=== PATIENT | female | born 1995 | race Two or more races ===

== ENCOUNTER 2022-06-25 13:45 | Inpatient (IN) | payer OTHER ==
[~2022-06-25] VITALS: Ht 162.6 cm; Wt 3.2 kg
[2022-07-04] MEDS ORDERED: PRENATAL TABLE1 EAC1 PO (06:27)
[2022-07-04] MEDS ORDERED: KEPPRA500 MG (06:27)
[2022-07-04] MEDS ORDERED: FOLIC ACID0.8 M1 PO (06:27)
== END 2022-07-07 12:58 | disposition home or self-care (01) | DRG 788 ==
LOC: OB/GYN 07-04 05:20 → LDR 07-04 05:20 → OB/GYN 07-04 14:16
PROVIDERS: ADMIT Specialist; ATTEND Specialist
PROC: 4A1HXCZ Monitoring of Products of Conception, Cardiac Rate, External Approach (ICD-10-PCS; 2022-07-04)
PROC: 10D00Z1 Extraction of Products of Conception, Low, Open Approach (ICD-10-PCS; principal; 2022-07-04 17:45)
DX: O33.8 Maternal care for disproportion of other origin (principal); Z3A.39 39 weeks gestation of pregnancy; Z37.0 Single live birth; Z20.822 Contact with and (suspected) exposure to COVID-19

== ENCOUNTER 2023-09-10 09:21 | Outpatient (CLI) | payer OTHER ==
[~2023-09-10 09:21] MED LIST: FOLIC ACID0.8 M1 PO; KEPPRA500 MG; PRENATAL TABLE1 EAC1 PO
== END 2023-09-10 09:24 | disposition home or self-care (01) ==
LOC: PRENATAL 09:21
PROVIDERS: ATTEND Obstetrics & Gynecology Maternal & Fetal Medicine
DX: O35.3XX0 Maternal care for (suspected) damage to fetus from viral disease in mother, not applicable or unspecified (principal); O44.00 Complete placenta previa NOS or without hemorrhage, unspecified trimester; O34.219 Maternal care for unspecified type scar from previous cesarean delivery; Z3A.20 20 weeks gestation of pregnancy

== ENCOUNTER 2023-09-21 17:06 | Emergency (ER) | payer OTHER ==
[~2023-09-21] VITALS: Ht 162.6 cm; Wt 99.8 kg
[2023-09-21] MEDS ORDERED: 0.9 % SODIUM CHLORIDE 1,000 ML IV STA (18:07)
[2023-09-21 18:53] LABS: HEMATOCRIT 37.5 % (36.0-45.00); HEMOGLOBIN 12.6 g/dL (12.0-15.00); MEAN CELL VOLUME 83.5 fL (80.00-100.00); MEAN CORPUSCULAR HEMOGLOBIN 28.1 pg (27.00-32.0); MEAN CORPUSCULAR HGB CONC 33.6 g/dl (32.0-36.0); PLATELET COUNT 223 K/uL (150-450); RED CELL DISTRIBUTION WIDTH 14.4 % (11.5-14.5)
[2023-09-21 19:13] LABS: CREATININE SERUM 0.57 mg/dL (0.55-1.02); GFR 128.21; POTASSIUM 3.56 mEq/L (3.5-5.1)
[2023-09-21 22:15] LABS: PH,URINE 5.5 (5.0-8.0); URINE APPEARANCE Clear; URINE BILIRRUBIN Negative (NEGATIVE); URINE BLOOD Negative; URINE COLOR Dark Yellow; URINE GLUCOSE Negative (NEGATIVE); URINE LEUKOCYTE Negative; URINE NITRATE Negative; URINE PROTEIN Trace (NEGATIVE)
[2023-09-21 22:18] LABS: URINE BACTERIA 1320.4 uL (0.0-1933); URINE EPITHELIAL CELLS 47.3 uL (0.0-38.8); URINE RBC 9.4 uL (0.0-20.8); URINE WBC 9.1 uL (0.0-23.2)
[2023-09-21 22:26] LABS: URINE MUCUS MODERATE
== END 2023-09-21 22:42 | disposition home or self-care (01) ==
LOC: ER 17:06
PROVIDERS: Emergency Medicine
DX: O26.892 Other specified pregnancy related conditions, second trimester (principal); Z3A.21 21 weeks gestation of pregnancy

== ENCOUNTER → 2023-12-17 08:38 | Outpatient (CLI) | payer OTHER | END | disposition home or self-care (01) | LOC: PRENATAL 08:38 | PROVIDERS: ATTEND Obstetrics & Gynecology Maternal & Fetal Medicine | DX: O24.419 Gestational diabetes mellitus in pregnancy, unspecified control (principal); O26.843 Uterine size-date discrepancy, third trimester; O36.8130 Decreased fetal movements, third trimester, not applicable or unspecified; O34.219 Maternal care for unspecified type scar from previous cesarean delivery; Z3A.34 34 weeks gestation of pregnancy ==

== ENCOUNTER 2024-01-08 10:19 | Inpatient (IN) | payer OTHER ==
[~2024-01-08] VITALS: Ht 162.6 cm; Wt 3.6 kg
[2024-01-08 11:07] LABS: PH,URINE 6.5 (5.0-8.0); URINE APPEARANCE Clear; URINE BILIRRUBIN Negative (NEGATIVE); URINE BLOOD Negative; URINE COLOR Yellow; URINE GLUCOSE Negative (NEGATIVE); URINE KETONE 15 (NEGATIVE); URINE LEUKOCYTE Small; URINE NITRATE Negative; URINE PROTEIN Negative (NEGATIVE); URINE UROBILINOGEN 0.2 E.U./dl
[2024-01-08] MEDS ORDERED: PRENATABS RX T1 EACH PO (11:11)
[2024-01-08] MEDS ORDERED: VITAMIN K100 MCG PO (11:11)
[2024-01-08 11:12] LABS: URINE BACTERIA 1980.6 uL (0.0-1933); URINE EPITHELIAL CELLS 57.9 uL (0.0-38.8); URINE WBC 68.3 uL (0.0-23.2)
[2024-01-08 11:29] LABS: HEMATOCRIT 39.5 % (36.0-45.00); HEMOGLOBIN 13.1 g/dL (12.0-15.00); MEAN CELL VOLUME 84.7 fL (80.00-100.00); MEAN CORPUSCULAR HEMOGLOBIN 28.2 pg (27.00-32.0); MEAN CORPUSCULAR HGB CONC 33.3 g/dl (32.0-36.0); PLATELET COUNT 151 K/uL (150-450); RED BLOOD COUNT 4.66 M/uL (4.00-6.00); RED CELL DISTRIBUTION WIDTH 16.9 % (11.5-14.5)
[2024-01-08 11:55] LABS: INR < 0.93; PARTIAL THROMBOPLASTIN TIME 28.3 SECONDS (22.0-34.0); PROTHROMBIN TIME 9.3 SECONDS (9.0-11.5)
[2024-01-19] MEDS ORDERED: OXYTOCIN 10 UNITS/ML VIAL ONE (16:12)
[2024-01-19] MEDS ORDERED: CEFAZOLIN SODIUM 1,000 MG VIAL ONE (16:12)
[2024-01-19] MEDS ORDERED: ERYTHROMYCIN BASE 1 GM TUBE OP ONE (16:12)
[2024-01-19] MEDS ORDERED: RINGERS SOLUTION,LACTATED 1,000 ML IV SCH (18:15)
[2024-01-19] MEDS ORDERED: PROMETHAZINE HCL 50 MG/ML AMPUL IM PRN (18:15)
[2024-01-19] MEDS ORDERED: MEPERIDINE HCL/PF 50 MG/ML VIAL IM PRN (18:15)
[2024-01-19] MEDS ORDERED: CEFAZOLIN SODIUM 1,000 MG VIAL IV SCH (20:00)
[2024-01-19] MEDS ORDERED: PROMETHAZINE HCL 50 MG/ML AMPUL IM ONE ×2 (20:02→23:53)
[2024-01-20 01:33] LABS: HEMATOCRIT 38.3 % (36.0-45.00); HEMOGLOBIN 12.9 g/dL (12.0-15.00); MEAN CELL VOLUME 84.5 fL (80.00-100.00); MEAN CORPUSCULAR HEMOGLOBIN 28.3 pg (27.00-32.0); MEAN CORPUSCULAR HGB CONC 33.6 g/dl (32.0-36.0); RED BLOOD COUNT 4.53 M/uL (4.00-6.00); RED CELL DISTRIBUTION WIDTH 16.5 % (11.5-14.5)
[2024-01-20 01:53] LABS: PLATELET COUNT 137 K/uL (150-450)
[2024-01-20] MEDS ORDERED: ACETAMINOPHEN 500 MG GEL..CAP PO PRN (08:00)
[2024-01-20] MEDS ORDERED: OxyCODONE HCL/APAP UD (PERCOCET) PO PRN (08:00)
[2024-01-20] MEDS ORDERED: LevETIRAcetam 500 MG TAB. PO SCH ×2 (09:00→21:00)
[2024-01-22] MEDS ORDERED: IBUPROFEN800 MG PO (07:37)
== END 2024-01-22 14:19 | disposition home or self-care (01) | DRG 784 ==
LOC: OB/GYN 01-19 09:15 → O/R 01-19 15:57 → OB/GYN 01-19 19:20 → SEC-K 01-19 22:03 → OB/GYN 01-19 22:05
PROVIDERS: ADMIT Specialist; ATTEND Specialist
PROC: 0UB70ZZ Excision of Bilateral Fallopian Tubes, Open Approach (ICD-10-PCS; 2024-01-19)
PROC: 4A1HXCZ Monitoring of Products of Conception, Cardiac Rate, External Approach (ICD-10-PCS; 2024-01-19)
PROC: 10D00Z1 Extraction of Products of Conception, Low, Open Approach (ICD-10-PCS; principal; 2024-01-19 09:15)
DX: O36.63X0 Maternal care for excessive fetal growth, third trimester, not applicable or unspecified (principal); O99.354 Diseases of the nervous system complicating childbirth; G40.909 Epilepsy, unspecified, not intractable, without status epilepticus; O34.211 Maternal care for low transverse scar from previous cesarean delivery; Z3A.39 39 weeks gestation of pregnancy; Z37.0 Single live birth; Z20.822 Contact with and (suspected) exposure to COVID-19; Z30.2 Encounter for sterilization